=== PATIENT | female | born 1960 | race Caucasian/White ===

== ENCOUNTER → 2024-08-17 12:20 | Outpatient (CLI) | payer OTHER, SELFPAY ==
--- NOTE | 2024-08-17 12:23 | DI.RAD.S_ITS ---
PROCEDURE: XR FOOT RT MIN 3V INDICATIONS: kicked wood today. pain 4th and 5th toes TECHNIQUE: 3 views of the foot were acquired. COMPARISON: None. FINDINGS: Bones: Mildly displaced obliquely oriented fracture of the 5th proximal phalangeal diaphysis. No suspicious bony lesions. Retrocalcaneal enthesopathy. Soft tissues: No tibiotalar joint effusion. Achilles tendon appears normal. IMPRESSION: Mildly displaced obliquely oriented 5th proximal phalangeal diaphyseal fracture. Dictated by: Conner Acevedo M.D. on 08/18/2024 at 14:19 Approved by: Conner Acevedo M.D. on 08/18/2024 at 14:21
== END ==
PROVIDERS: Referring Provider Nurse Practitioner Family; Visit Provider Nurse Practitioner Family
DX: S92.511A Displaced fracture of proximal phalanx of right lesser toe(s), initial encounter for closed fracture (principal); W22.09XA Striking against other stationary object, initial encounter
CPT/HCPCS: 73630